=== PATIENT | female | born 1955 | race Caucasian/White ===

== ENCOUNTER → 2018-04-30 | Outpatient (CLI) | payer BC ==
--- NOTE | 2018-05-01 14:51 | XCELERA REPORT ---
[address] [address] Lower Extremity Arterial Evaluation Name: ALEXIA MONTES Age: 63 yrs Gender: Female : 1955 Patient Status: Outpatient Patient Location: [facility] Study Date: 04/30/2018 03:01 PM Procedure: A color flow and duplex scan of the lower extremity arteries was performed on the left with velocity and waveform anaylsis. Reason For Study: ABSENT PEDAL PULSES IN LEFT LEG Ordering Physician: JAYY FERNANDEZ Performed By: Janie Restrepo Measurements and Calculations Right Left Prox PFA PSV 75.2 cm/sec Prox SFA PSV 128.7 cm/sec Mid SFA PSV 100.0 cm/sec Dist SFA PSV 81.8 cm/sec Mid TATE PSV 49.2 cm/sec Mid GRAVITY PROSPECTING OPERATOR HELPER PSV 56.2 cm/sec Right Side Arterial Evaluation Triphasic waveform at the Dorsalsi Pedis. Left Side Arterial Evaluation Normal velocity and triphasic waveforms noted from the Common Femoral artery to the infrageniculate vessels . Ankle Brachial index not obtained. Interpretation Summary No hemodynamically significant lesions in the left lower extremity only, on duplex imaging, at rest. : JAYY FERNANDEZ > Jayy Fernandez
== END ==
LOC: SP 13:56
PROVIDERS: ATTEND Surgery
DX: R09.89 Other specified symptoms and signs involving the circulatory and respiratory systems (principal)
CPT/HCPCS: 93926